=== PATIENT | female | born 2000 | race Caucasian/White ===

== ENCOUNTER 2018-08-01 17:17 | Emergency (ER) | payer MEDICAID ==
[2018-08-01 17:29] VITALS: O2SAT 99
[2018-08-01] MEDS ORDERED: Sodium Chloride 0.9% 1000 ML 1,000 ML IV STA (17:46)
[2018-08-01] MEDS ORDERED: Adacel Vial IM ONE ×2 (17:46→17:53)
[2018-08-01] MEDS ORDERED: Rocephin 1000 MG INJ IV STA (17:46)
[2018-08-01] MEDS ORDERED: Zofran 4 MG/2 ML VIAL IV ONE (17:46)
[2018-08-01] MEDS ORDERED: MORPHINE SULFATE 4 MG INJ IV ONE ×2 (17:46→18:40)
--- NOTE | 2018-08-01 17:46 | ERPHSYRPT ---
- History of Present Illness Time Seen by Provider: 08/01/18 17:41 Source: patient, family Exam Limitations: no limitations Patient Subjective Stated Complaint: pt here for ingrown toe nail for a week now , Triage Nursing Assessment: pt alert, resp easy, skin w/d/p, she has swelling reddness and drainage from outer aspect of right toenail Physician History: stubbed toe and ingrown nail which has been cut back and draining freely without palpable felon or fluctuance but will need definitive surg after calmed down no hx diabetes; Method of Injury: direct blow Occurred: last week Quality: constant, sharpness, throbbing Severity of Pain-Max: moderate Severity of Pain-Current: moderate Lower Extremities Pain: 1st toe: right Modifying Factors: Improves With: movement Allergies/Adverse Reactions: azithromycin [From Zithromax Z-Curt] Allergy (Verified 08/01/18 17:29) Hives Home Medications: Docusate Sodium 1 tab DAILY 08/01/18 [History] Hydrocodone/Acetaminophen [Hydrocodone-Acetamin 5-325 mg] 1 tab DAILY 08/01/18 [ History] Ibuprofen 600 mg DAILY 08/01/18 [History] Hx Tetanus, Diphtheria Vaccination/Date Given: Yes (2017) Hx Influenza Vaccination/Date Given: Yes Hx Pneumococcal Vaccination/Date Given: No Immunizations Up to Date: Yes - Review of Systems Constitutional: No Fever, No Chills Eyes: No Symptoms Ears, Nose, & Throat: No Symptoms Respiratory: No Cough, No Dyspnea Cardiac: No Chest Pain, No Edema, No Syncope Abdominal/Gastrointestinal: No Abdominal Pain, No Nausea, No Vomiting, No Diarrhea Genitourinary Symptoms: No Dysuria Musculoskeletal: Joint Redness, Joint Pain, No Back Pain, No Neck Pain Skin: Cellulitis (right great toe), No Rash Neurological: No Dizziness, No Focal Weakness, No Sensory Changes Psychological: No Symptoms Endocrine: No Symptoms All Other Systems: Reviewed and Negative - Past Medical History Pertinent Past Medical History: No Neurological History: No Pertinent History ENT History: No Pertinent History Cardiac History: No Pertinent History Respiratory History: No Pertinent History Endocrine Medical History: No Pertinent History Musculoskeletal History: No Pertinent History GI Medical History: No Pertinent History History: No Pertinent History Psycho-Social History: Anxiety Female Reproductive Disorders: No Pertinent History - Past Surgical History Past Surgical History: Yes Neuro Surgical History: No Pertinent History Cardiac: No Pertinent History Respiratory: No Pertinent History Gastrointestinal: No Pertinent History Genitourinary: No Pertinent History Musculoskeletal: Other Female Surgical History: No Pertinent History Other Surgical History: right knee ,cyst removed on wrist - Social History Smoking Status: Former smoker Exposure to second hand smoke: No Drug Use: none Patient Lives Alone: No - Female History Hx Last Menstrual Period: 2017 Hx Now: No (2 weeks post ) - Nursing Vital Signs Nursing Vital Signs: Initial Vital Signs Temperature 98.0 F 08/01/18 17:21 Pulse Rate 103 H 08/01/18 17:21 Respiratory Rate 18 08/01/18 17:21 Blood Pressure 144/94 08/01/18 17:21 O2 Sat by Pulse Oximetry 99 08/01/18 17:21 Pain Scale Pain Intensity 8 - Physical Exam General Appearance: alert Eyes, Ears, Nose, Throat Exam: moist mucous membranes Neck Exam: non-tender, supple Cardiovascular/Respiratory Exam: chest non-tender, normal breath sounds, regular rate/rhythm, no respiratory distress Gastrointestinal/Abdominal Exam: non-tender, guarding Back Exam: normal inspection, No vertebral tenderness Hips Exam: bilateral: non-tender, normal inspection, normal range of motion, no evidence of injury Legs Exam: bilateral leg: non-tender, normal inspection, normal range of motion , no evidence of injury Knees Exam: bilateral knee: non-tender, normal inspection, normal range of motion, no evidence of injury Ankle Exam: bilateral ankle: non-tender, normal inspection, normal range of motion, no evidence of injury Foot Exam: right foot: bone tenderness (great toe), nail injury, pain, soft tissue tenderness, swelling DTR - Lower Extremities Exam: knee (R): 2+, knee (L): 2+, ankle (R): 2+, ankle ( L): 2+ Neuro/Tendon Exam: normal sensation, normal motor functions Mental Status Exam: alert, oriented x 3, cooperative Skin Exam: normal color, warm, dry SpO2 Interpretation: normal SpO2: 99 O2 Delivery: Room Air - Course Nursing assessment & vital signs reviewed: Yes - Radiology Exams Right Foot X-ray Interpretation: Reviewed by me, No Fracture, Other (no obvious osteo. ) Ordered Tests: Active Orders 24 hr Category Date Time Status IV Insertion STAT Care 08/01/18 17:46 Active Wound Care STAT Care 08/01/18 17:46 Active FOOT (MINIMUM 3 VIEWS) Stat Exams 08/01/18 17:48 Ordered CBC W DIFF Stat Lab 08/01/18 17:46 Completed SED RATE [Erythrocyte Sedimentation Rate] Stat Lab 08/01/18 17:49 Completed Medication Summary Generic Name Dose Route Start Last Admin Trade Name Hiral PRN Reason Stop Dose Admin Ceftriaxone Sodium mg 08/01/18 17:46 Rocephin 1000 Mg Inj IV 08/01/18 17:47 STAT STA Discontinued Medications Generic Name Dose Route Start Last Admin Trade Name Hiral PRN Reason Stop Dose Admin Diphenhydramine HCl 25 mg 08/01/18 18:41 08/01/18 18:51 Benadryl 50 Mg/Ml IV 08/01/18 18:42 25 mg STAT ONE Administration Diphenhydramine HCl Confirm 08/01/18 18:46 Benadryl 50 Mg/Ml Administered 08/01/18 18:47 Dose 50 mg .ROUTE .STK-MED ONE Diphtheria/Tetanus/Acell Pertussis 0.5 ml 08/01/18 17:46 08/01/18 18:12 Adacel Vial IM 08/01/18 17:47 0.5 ml .ONCE ONE Administration Diphtheria/Tetanus/Acell Pertussis Confirm 08/01/18 17:53 Adacel Vial Administered 08/01/18 17:54 Dose 0.5 ml IM .STK-MED ONE Sodium Chloride 1,000 mls @ 999 mls/hr 08/01/18 17:46 08/01/18 19:10 Sodium Chloride 0.9% 1000 Ml IV 08/01/18 18:46 Infused .Q1H1M STA Infusion Sodium Chloride Confirm 08/01/18 17:52 Sodium Chloride 0.9% 1000 Ml Administered 08/01/18 17:53 Dose 1,000 mls @ ud .ROUTE .STK-MED ONE Ceftriaxone Sodium/Dextrose 1 g in 50 mls @ 100 mls/hr 08/01/18 18:40 18:53 Rocephin 1 Gm-D5w 50 Ml Bag IV 08/01/18 19:09 100 ml/hr STAT STA 100 mls/hr Administration Ceftriaxone Sodium/Dextrose Confirm 08/01/18 18:47 Rocephin 1 Gm-D5w 50 Ml Bag Administered 08/01/18 18:48 Dose 1 g in 50 mls @ ud IV .STK-MED ONE Morphine Sulfate 4 mg 08/01/18 17:46 08/01/18 18:05 Morphine Sulfate 4 Mg Inj IV 08/01/18 17:47 4 mg STAT ONE Administration Morphine Sulfate Confirm 08/01/18 17:52 Morphine Sulfate 4 Mg Inj Administered 08/01/18 17:53 Dose 4 mg .ROUTE .STK-MED ONE Morphine Sulfate 4 mg 08/01/18 18:40 08/01/18 18:52 Morphine Sulfate 4 Mg Inj IV 08/01/18 18:41 4 mg STAT ONE Administration Morphine Sulfate Confirm 08/01/18 18:46 Morphine Sulfate 4 Mg Inj Administered 08/01/18 18:47 Dose 4 mg .ROUTE .STK-MED ONE Ondansetron HCl 4 mg 08/01/18 17:46 08/01/18 18:04 Zofran 4 Mg/2 Ml Vial IV 08/01/18 17:47 4 mg STAT ONE Administration Ondansetron HCl Confirm 08/01/18 17:52 Zofran 4 Mg/2 Ml Vial Administered 08/01/18 17:53 Dose 4 mg .ROUTE .STK-MED ONE Lab/Rad Data: Laboratory Result Diagrams 08/01/18 17:46 Laboratory Results 08/01/18 08/01/18 Range/Units 17:49 17:46 WBC 6.9 (4.0-10.5) K/mm3 RBC 4.78 (4.1-5.4) M/mm3 Hgb 14.2 (12.0-16.0) gm/dl Hct 42.9 (35-47) % MCV 89.7 (78-100) fl MCH 29.7 (26-32) pg MCHC 33.1 (32-36) g/dl RDW 12.3 (11.5-14.0) % Plt Count 286 (150-450) K/mm3 MPV 9.9 H (6-9.5) fl Gran % 66.0 (36.0-66.0) % Eos # (Auto) 0.20 (0-0.5) Absolute Lymphs (auto) 1.31 (1.0-4.6) Absolute Monos (auto) 0.74 (0.0-1.3) Lymphocytes % 19.0 L (24.0-44.0) % Monocytes % 10.8 (0.0-12.0) % Eosinophils % 2.9 (0.00-5.0) % Basophils % 1.3 (0.0-0.4) % Absolute Granulocytes 4.54 (1.4-6.9) Basophils # 0.09 (0-0.4) ESR 29 H (0-20) mm/hr - Progress Progress: improved, re-examined Progress Note: 08/01/18 18:41 dicussed with pt trying to drain now vs waiting for ab and return if not improving and that is what she choses after discussion of risk and benefit including worsening from delayed drainage; she will see precision agriculture technician friday. Counseled pt/family regarding: lab results, diagnosis, need for follow-up, rad results - Departure Departure Disposition: Home Clinical Impression: Ingrown nail of great toe of right foot, Paronychia Condition: Good Critical Care Time: No Referrals: AMARJIT HERR [ACTIVE STAFF] - Instructions: Paronychia, Ingrown Toenail (DC), Cellulitis (Skin Infection), Adult (DC), Toe Injury (DC) Additional Instructions: see foot dr friday or return tomorrow if not improving. this may need to be drained to control the infection. continue soaking in epsom salts at least twice a day and apply antibiotic oint after each soaking. also recheck blood pressure with your Dr. Prescriptions: Amoxicillin/Potassium Clav [Augmentin 875-125 Tablet] 1 each PO BID 10 Days #20 tablet Mupirocin [Bactroban OINTMENT] 22 gm TP BID PRN #1 tube
[2018-08-01] MEDS ORDERED: Sodium Chloride 0.9% 1000 ML 1,000 ML ONE (17:52)
[2018-08-01] MEDS ORDERED: Zofran 4 MG/2 ML VIAL ONE (17:52)
[2018-08-01] MEDS ORDERED: MORPHINE SULFATE 4 MG INJ ONE ×2 (17:52→18:46)
[2018-08-01 18:11] LABS: BASOPHIL % 1.3 % (0.0-0.4); Basophil (Absolute #) 0.09 (0-0.4); Eosinophil % 2.9 % (0.00-5.0); Granulocyte Absolute (ANC) 4.54 (1.4-6.9); Hematocrit 42.9 % (35-47); Hemoglobin 14.2 gm/dl (12.0-16.0); Lymphocyte (Absolute #) 1.31 (1.0-4.6); Mean Cell Volume 89.7 fl (78-100); Mean Corpuscular Hemoglobin 29.7 pg (26-32); Mean Corpuscular Hgb Concent. 33.1 g/dl (32-36); Mean Platelet Volume 9.9 fl (6-9.5); Monocyte (Absolute #) 0.74 (0.0-1.3); Monocytes % 10.8 % (0.0-12.0); Platelet Count 286 K/mm3 (150-450); Red Blood Count 4.78 M/mm3 (4.1-5.4); Red Cell Distribution Width 12.3 % (11.5-14.0); White Blood Count 6.9 K/mm3 (4.0-10.5)
[2018-08-01] MEDS ORDERED: ROCEPHIN 1 Gm-D5w 50 ml Bag** 1 G/50 ML IVPB IV STA (18:40)
[2018-08-01] MEDS ORDERED: BENADRYL 50 MG/ML IV ONE (18:41)
[2018-08-01] MEDS ORDERED: BENADRYL 50 MG/ML ONE (18:46)
[2018-08-01] MEDS ORDERED: ROCEPHIN 1 Gm-D5w 50 ml Bag** 1 G/50 ML IVPB IV ONE (18:47)
[2018-08-01 19:50] VITALS: BP 140/86; PULSE 76
--- NOTE | 2018-08-01 20:45 | XRAY ---
Indication: Great toe ingrown toenail. Comparison: None 3 nonweightbearing views of the right foot demonstrates distal great toe soft tissue swelling, tiny cuboid accessory ossicle, and a small round 3rd proximal phalanx bone island. No other bony, articular, or soft tissue abnormalities.
== END 2018-08-01 19:53 | disposition home or self-care (01) ==
LOC: ED 17:17
DX: L60.0 Ingrowing nail (principal); L03.031 Cellulitis of right toe
CPT/HCPCS: 36000; 36415; 73630; 85025; 85652; 90471; 90715; 96360; 96365; 96374; 96375; 96376; 99284; J0696; J1200; J2270; J2405